=== PATIENT | female | born 1960 | race Caucasian/White ===

== ENCOUNTER 2022-02-05 14:23 | Emergency (ER) | payer SELFPAY ==
[~2022-02-05] VITALS: Ht 162.5 cm; Wt 77.0 kg
[2022-02-05] MEDS ORDERED: CYCLOBENZAPRINE 10 MG (FLEXERIL) TAB PO STA (14:37)
--- NOTE | 2022-02-05 14:37 | ED Back Pain ---
General Chief Complaint: Back Problems Stated Complaint: BACK PAIN Source of Information: Patient Exam Limitations: No Limitations History of Present Illness Date Seen by Provider: Feb 05, 2022 Time Seen by Provider: 14:25 Initial Comments 61-year-old female with past medical history of breast cancer in remission, recently diagnosed rheumatoid arthritis not on therapy yet, and hypertension coming in due to right-sided lower back pain. Started 3 days ago, constant, worse with movement, sharp, radiates down her right leg. Its better with rest. She is taken no medicines for it as of yet. Denies any bowel or bladder dysfunction that is irregular for her, no weakness, no numbness that is new, no fever, no trauma. Denies any urinary symptoms such as hematuria or dysuria. Denies ever having a kidney stone. Has never really felt pain like this before, but does have sporadic pain everywhere due to her RA Allergies and Home Medications Allergies Coded Allergies: No Known Drug Allergies (Unverified , 02/05/22) Patient Home Medication List Home Medication List Reviewed: Yes Cefdinir (Cefdinir) 300 Mg Capsule, 300 MG PO BID Prescribed by: DESHAUN HAM on 02/05/22 1509 Hydrocodone Bit/Acetaminophen (HYDROcodone/APAP 5 MG/325 MG TAB) 1 Tab Tab, 1 TAB PO Q6H Prescribed by: DESHAUN HAM on 02/05/22 1509 Review of Systems Constitutional: No fever EENTM: No blurred vision Respiratory: no symptoms reported Cardiovascular: no symptoms reported Gastrointestinal: no symptoms reported Genitourinary: no symptoms reported Musculoskeletal: back pain Skin: no symptoms reported Psychiatric/Neurological: No Symptoms Reported All Other Systems Reviewed Negative Unless Noted: Yes Past Amevjwo-Jfskxr-Tupjlm Hx Patient Social History Tobacco Use?: No Substance use?: No Alcohol Use?: No Past Medical History Surgeries: Yes (lumpectomy, gallbladder) Physical Exam Vital Signs Vital Signs - First Documented 02/05/22 14:27 Temp 36.5 Pulse 102 Resp 16 B/P (MAP) 170/115 (133) Pulse Ox 98 O2 Delivery Room Air Capillary Refill : Height, Weight, BMI Height: '" Weight: lbs. oz. kg; BMI Method: General Appearance: No Apparent Distress, WD/WN HEENT: PERRL/EOMI, Normal ENT Inspection, Pharynx Normal Neck: Full Range of Motion, Normal Inspection, Non Tender, Supple Cardiovascular: Regular Rate, Rhythm, No Edema, Normal Peripheral Pulses Respiratory: Chest Non Tender, Lungs Clear, Normal Breath Sounds, No Accessory Muscle Use, No Respiratory Distress Gastrointestinal: Normal Bowel Sounds, Non Tender, Soft; No Distended, No Guarding Back: Normal Inspection, No Vertebral Tenderness, CVA Tenderness (R), Other (N egative straight leg test) Extremity: Normal Capillary Refill, Normal Inspection, Normal Range of Motion, Non Tender, No Calf Tenderness, No Pedal Edema Neurologic/Psychiatric: Alert, No Motor/Sensory Deficits, Normal Mood/Affect, Other (Normal gait, normal distal strength and sensation) Skin: Normal Color, Warm/Dry Lymphatic: No Adenopathy Progress/Results/Core Measures Results/Orders Lab Results Laboratory Tests Test 02/05/22 14:39 Range/Units Urine Color YELLOW Urine Clarity SLIGHTLY CLOUDY Urine pH 7.0 5-9 Urine Specific [place] 1.015 L 1.016-1.022 Urine Protein NEGATIVE NEGATIVE Urine Glucose (UA) NEGATIVE NEGATIVE Urine Ketones NEGATIVE NEGATIVE Urine Nitrite POSITIVE H NEGATIVE Urine Bilirubin NEGATIVE NEGATIVE Urine Urobilinogen 0.2 < = 1.0 MG/DL Urine Leukocyte Esterase TRACE H NEGATIVE Urine RBC (Auto) NEGATIVE NEGATIVE Urine RBC 10-25 H /HPF Urine WBC 10-25 H /HPF Urine Crystals NONE /LPF Urine Bacteria LARGE H /HPF Urine Casts NONE /LPF Urine Mucus NEGATIVE /LPF Urine Culture Indicated YES My Orders Orders - DESHAUN HAM MD Ketorolac Injection (Toradol Injection) (02/05/22 14:45) Acetaminophen Tablet (Tylenol Tablet) (02/05/22 14:45) Cyclobenzaprine Tablet (Flexeril Tablet) (02/05/22 14:37) Ct Abdomen/Pelvis Wo (02/05/22 14:37) Ua Culture If Indicated (02/05/22 14:37) Urine Culture (02/05/22 14:39) Ceftriaxone 1 Gm Pre-Mix (Rocephin 1 Gm (02/05/22 15:00) Medications Given in ED Current Medications Medications Dose Ordered Sig/Kishan Route Start Time Stop Time Status Last Admin Dose Admin Acetaminophen 1,000 mg ONCE ONCE PO 02/05/22 14:45 02/05/22 14:46 DC 02/05/22 14:44 1,000 MG Ceftriaxone Sodium/Dextrose 50 ml @ 100 mls/hr ONCE ONCE IV 02/05/22 15:00 02/05/22 15:29 02/05/22 15:11 100 MLS/HR Ketorolac Tromethamine 15 mg ONCE ONCE IM 02/05/22 14:45 02/05/22 14:46 DC 02/05/22 14:45 15 MG Vital Signs/I&O 02/05/22 14:27 Temp 36.5 Pulse 102 Resp 16 B/P (MAP) 170/115 (133) Pulse Ox 98 O2 Delivery Room Air Progress Progress Note : Progress Note 61-year-old female with above history coming in due to right flank pain. ABCs were intact and vitals were stable on presentation. Physical exam with right C VA tenderness over her kidney. She is neurovascularly intact and has a normal gait with no red flags for low back pain. CT abdomen pelvis without contrast ordered without acute abnormality. Specifically she does not have any ureterolithiasis, no fracture, normal caliber aorta with no signs of aneurysm. Urinalysis concerning for infection and given the tenderness over her kidney and concern for pyelonephritis. She was given a dose of IV ceftriaxone and will be sent home with oral medications. Diagnostic Imaging Diagonstic Imaging: CT (abd/pelvis) Comments NAME: EVELIN GARCIA [facility] REC#: [id number] PT STATUS: REG ER : 1960 PHYSICIAN: DESHAUN HAM MD ADMIT DATE: 02/05/22/ER FS Draft Date of Exam:02/05/22 CT ABDOMEN/PELVIS WO PROCEDURE: CT abdomen and pelvis without contrast. TECHNIQUE: Multiple contiguous axial images were obtained through the abdomen and pelvis without the use of intravenous contrast. Auto Exposure Controls were utilized during the CT exam to meet ALARA standards for radiation dose reduction. INDICATION: Right flank pain. FINDINGS: There are no radiopaque urinary tract calculi. There is no hydroureteronephrosis. There is no perinephric or periureteric edema or stranding. The unopacified urinary bladder is unremarkable. The appendix is air-containing, nondilated, and non-thickened. No appendicitis. There is no diverticulitis. The gallbladder is surgically absent. There is no pathological distention of the bile ducts. The spleen, adrenals, and pancreas are unremarkable. The atherosclerotic aorta is nonaneurysmal. There is a mildly elevated fecal load throughout the length of the colon and mild constipation could not be excluded. There is, however, no focal impaction or bowel obstruction and no colonic wall thickening. IMPRESSION: 1. Nonfocal, unobstructed, and nonacute urinary tracts. 2. Mild constipation could not be excluded but no impaction, obstruction, or focal inflammatory process. 3. Normal appendix. Dictated on workstation # [id number] Dict: 02/05/22 1453 Trans: 02/05/22 1503 [id number] Interpreted by: ZACHARIAH EDMONDS Electronically signed by: Departure Impression Primary Impression: Pyelonephritis Disposition: HOME, SELF-CARE Condition: Stable Departure-Patient Inst. Decision time for Depature: 15:25 Referrals: SHADE CHICAS APRN (PCP) Primary Care Physician MELANIE ELIZABETH MD (Family) Primary Care Physician Patient Instructions: Kidney Infection (DC) Add. Discharge Instructions: You have a kidney infection on the right. You will be on antibiotics for the next 10 days. Take over the counter ibuprofen or naproxen for pain. If that doesn't help then you can take a hydrocodone. If things are not improving in the next week then follow up with your regular doctor. Scripts Hydrocodone Bit/Acetaminophen (HYDROcodone/APAP 5 MG/325 MG TAB) 1 Tab Tab 1 TAB PO Q6H for Pain for 3 Days, #12 TAB 0 Refills Prov: DESHAUN HAM MD 02/05/22 Cefdinir (Cefdinir) 300 Mg Capsule 300 MG PO BID for 10 Days, #20 CAP 0 Refills Prov: DESHAUN HAM MD 02/05/22 Work/School Note: Work Release Form Date Seen in the Emergency Department: Feb 05, 2022 Return to Work: Feb 07, 2022 Restrictions: No Restrictions DESHAUN HAM MD Feb 05, 2022 14:37
[2022-02-05 14:42] LABS: BILIRUBIN,URINE NEGATIVE (NEGATIVE); COLOR,URINE YELLOW; GLUCOSE, URINE (UA) NEGATIVE (NEGATIVE); KETONES,URINE NEGATIVE (NEGATIVE); LEUKOCYTE ESTERASE ,URINE TRACE (NEGATIVE); NITRITE,URINE POSITIVE (NEGATIVE); PROTEIN,URINE NEGATIVE (NEGATIVE)
[2022-02-05 14:45] LABS: CLARITY,URINE SLIGHTLY CLOUDY
[2022-02-05] MEDS ORDERED: KETOROLAC 30 MG/ML VIAL IM ONE (14:45)
[2022-02-05] MEDS ORDERED: ACETAMINOPHEN 500 MG TAB (TYLENOL) PO ONE (14:45)
[2022-02-05 14:46] LABS: BACTERIA,URINE LARGE /HPF
[2022-02-05] MEDS ORDERED: cefTRIAXone 1 GM PRE-MIX 50 ML IV ONE (15:00)
--- NOTE | 2022-02-05 15:04 | Diagnostic Imaging Report ---
PROCEDURE: CT abdomen and pelvis without contrast. TECHNIQUE: Multiple contiguous axial images were obtained through the abdomen and pelvis without the use of intravenous contrast. Auto Exposure Controls were utilized during the CT exam to meet ALARA standards for radiation dose reduction. INDICATION: Right flank pain. FINDINGS: There are no radiopaque urinary tract calculi. There is no hydroureteronephrosis. There is no perinephric or periureteric edema or stranding. The unopacified urinary bladder is unremarkable. The appendix is air-containing, nondilated, and non-thickened. No appendicitis. There is no diverticulitis. The gallbladder is surgically absent. There is no pathological distention of the bile ducts. The spleen, adrenals, and pancreas are unremarkable. The atherosclerotic aorta is nonaneurysmal. There is a mildly elevated fecal load throughout the length of the colon and mild constipation could not be excluded. There is, however, no focal impaction or bowel obstruction and no colonic wall thickening. IMPRESSION: 1. Nonfocal, unobstructed, and nonacute urinary tracts. 2. Mild constipation could not be excluded but no impaction, obstruction, or focal inflammatory process. 3. Normal appendix. Dictated by: Dictated on workstation # [id number]
[2022-02-05] MEDS ORDERED: CEFD300C3 PO (15:09)
[2022-02-05] MEDS ORDERED: ACHD5005 PO (15:09)
[2022-02-05 15:49] VITALS: BP 170/115
== END 2022-02-05 15:41 | disposition home or self-care (01) ==
LOC: ER FS 14:26
DX: N12 Tubulo-interstitial nephritis, not specified as acute or chronic (principal)
CPT/HCPCS: 74176; 81000; 87088

== ENCOUNTER 2023-05-01 10:08 | Emergency (ER) | payer OTHER ==
[~2023-05-01] VITALS: Ht 160 cm; Wt 69.0 kg
[~2023-05-01 10:08] MED LIST: ACHD5005 PO; CEFD300C3 PO
--- NOTE | 2023-05-01 10:15 | ED Neurological Problem ---
General Stated Complaint: SEIZURE History of Present Illness Date Seen by Provider: May 01, 2023 Time Seen by Provider: 10:10 Initial Comments 63-year-old female with PMH of seizure disorder but never started on any seizure medications/past history of drug use/Sjogren syndrome/HTN, was sent here from the clinic for seizure activity. Patient had a seizure today morning at 5 AM, 8 AM, 9:45 AM, and 1 in the clinic. The seizures lasted from 40 seconds to less than a minute as per her . Patient states that she does get an aura right before the seizure comes and she feels like the environment around her is disappearing right before she has a seizure. The last seizure patient had at home, she fell and hit her head lightly on the edge of the dresser, because her daughter was not able to help her down fast enough, as reported by her daughter. Patient has been traveling [place] the country in the past few days and has not had much sleep since Sunday as per her , and she has not been drinking as much water as she normally does. Patient's prior seizures were in June 2022 in February 2023. Denies recent fever or illness, diarrhea, chest pain, pa lpitations, traumas or injuries. Patient did not have anything to eat or drink today. Allergies and Home Medications Allergies Coded Allergies: No Known Drug Allergies (Unverified , 02/05/22) Patient Home Medication List Home Medication List Reviewed: Yes Cefdinir (Cefdinir) 300 Mg Capsule, 300 MG PO BID Prescribed by: DESHAUN HAM on 02/05/22 1509 Hydrocodone Bit/Acetaminophen (HYDROcodone/APAP 5 MG/325 MG TAB) 1 Tab Tab, 1 TAB PO Q6H Prescribed by: DESHAUN HAM on 02/05/22 1509 Levetiracetam (Keppra) 500 Mg Tablet, 500 MG PO BID Prescribed by: SHANTANU ABDUL MD on 05/01/23 1120 Review of Systems Review of Systems Constitutional: no symptoms reported Eyes: No Symptoms Reported Ears, Nose, Mouth, Throat: no symptoms reported Respiratory: no symptoms reported Cardiovascular: no symptoms reported Gastrointestinal: no symptoms reported Genitourinary: no symptoms reported Musculoskeletal: no symptoms reported Skin: no symptoms reported Psychiatric/Neurological: See HPI, Tonic Clonic Seizures Endocrine: No Symptoms Reported Hematologic/Lymphatic: No Symptoms Reported Past Ftmesso-Vvvfiy-Nqotkd Hx Immunizations Up To Date First/Initial COVID19 Vaccinat: Not currently vaccinated Past Medical History Surgery/Hospitalization HX: RA; Hx Breast Cancer; Cholecysectomy; right lumpectomy Surgeries: Yes (lumpectomy, gallbladder) Physical Exam Vital Signs Vital Signs - First Documented 05/01/23 10:08 Temp 37.0 Pulse 89 Resp 16 B/P (MAP) 162/94 (116) O2 Delivery Room Air Capillary Refill : Height, Weight, BMI Height: '" Weight: lbs. oz. kg; 29.00 BMI Method: General Appearance: WD/WN, no apparent distress HEENT: PERRL/EOMI, normal ENT inspection, other (Contusion to left temporal area, nontender) Neck: non-tender, full range of motion, supple, normal inspection Respiratory: chest non-tender, lungs clear, normal breath sounds Cardiovascular: regular rate, rhythm Gastrointestinal: normal bowel sounds, non tender, soft Back: normal inspection, no vertebral tenderness Extremities: normal range of motion, non-tender, normal inspection Neurologic/Psychiatric: data designer II-XII nml as tested, no motor/sensory deficits, alert, normal mood/affect, oriented x 3 Crainal Nerves: normal hearing, normal speech, PERRL Coordination/Gait: normal finger to nose, normal gait Motor/Sensory: no motor deficit, no sensory deficit Skin: normal color Lymphatic: no adenopathy Focused Exam Lactate Level 05/01/23 10:30: Lactic Acid Level 4.14*H Lactic Acid Level Laboratory Tests Test 05/01/23 10:30 Lactic Acid Level 4.14 MMOL/L (0.50-2.00) *H Progress/Results/Core Measures Results/Orders Lab Results Laboratory Tests Test 05/01/23 10:25 05/01/23 10:30 05/01/23 10:39 05/01/23 11:55 Range/Units White Blood Count 5.3 4.3-11.0 10^3/uL Red Blood Count 5.00 3.80-5.11 10^6/uL Hemoglobin 14.5 11.5-16.0 g/dL Hematocrit 45 35-52 % Mean Corpuscular Volume 91 80-99 fL Mean Corpuscular Hemoglobin 29 25-34 pg Mean Corpuscular Hemoglobin Concent 32 32-36 g/dL Red Cell Distribution Width 13.5 10.0-14.5 % Platelet Count 324 130-400 10^3/uL Mean Platelet Volume 9.1 9.0-12.2 fL Immature Granulocyte % (Auto) 1 % Neutrophils (%) (Auto) 79 H 42-75 % Lymphocytes (%) (Auto) 16 12-44 % Monocytes (%) (Auto) 3 0-12 % Eosinophils (%) (Auto) 0 0-10 % Basophils (%) (Auto) 1 0-10 % Neutrophils # (Auto) 4.2 1.8-7.8 10^3/uL Lymphocytes # (Auto) 0.8 L 1.0-4.0 10^3/uL Monocytes # (Auto) 0.2 0.0-1.0 10^3/uL Eosinophils # (Auto) 0.0 0.0-0.3 10^3/uL Basophils # (Auto) 0.1 0.0-0.1 10^3/uL Immature Granulocyte # (Auto) 0.0 0.0-0.1 10^3/uL Sodium Level 141 135-145 MMOL/L Potassium Level 3.8 3.6-5.0 MMOL/L Chloride Level 103 98-107 MMOL/L Carbon Dioxide Level 22 21-32 MMOL/L Anion Gap 16 H 5-14 MMOL/L Blood Urea Nitrogen 17 7-18 MG/DL Creatinine 0.76 0.60-1.30 MG/DL Estimat Glomerular Filtration Rate 89 BUN/Creatinine Ratio 22 Glucose Level 107 H 70-105 MG/DL Calcium Level 9.3 8.5-10.1 MG/DL Corrected Calcium 8.9 8.5-10.1 MG/DL Magnesium Level 2.2 1.6-2.4 MG/DL Total Bilirubin 0.3 0.1-1.0 MG/DL Aspartate Amino Transf (AST/SGOT) 16 5-34 U/L Alanine Aminotransferase (ALT/SGPT) 10 0-55 U/L Alkaline Phosphatase 107 40-136 U/L Total Protein 8.9 H 6.4-8.2 GM/DL Albumin 4.5 3.2-4.5 GM/DL Lactic Acid Level 4.14 *H 0.50-2.00 MMOL/L Glucometer 104 70-110 MG/DL Urine Color YELLOW Urine Clarity CLEAR Urine pH 7.0 5-9 Urine Specific [place] 1.020 1.016-1.022 Urine Protein NEGATIVE NEGATIVE Urine Glucose (UA) NEGATIVE NEGATIVE Urine Ketones NEGATIVE NEGATIVE Urine Nitrite NEGATIVE NEGATIVE Urine Bilirubin NEGATIVE NEGATIVE Urine Urobilinogen 0.2 < = 1.0 MG/DL Urine Leukocyte Esterase 1+ H NEGATIVE Urine RBC (Auto) NEGATIVE NEGATIVE Urine RBC NONE /HPF Urine WBC 5-10 H /HPF Urine Squamous Epithelial Cells 5-10 /HPF Urine Crystals NONE /LPF Urine Bacteria FEW H /HPF Urine Casts NONE /LPF Urine Mucus SMALL H /LPF Urine Culture Indicated YES Urine Opiates Screen POSITIVE H NEGATIVE Urine Oxycodone Screen NEGATIVE NEGATIVE Urine Methadone Screen NEGATIVE NEGATIVE Urine Propoxyphene Screen NEGATIVE NEGATIVE Urine Barbiturates Screen POSITIVE H NEGATIVE Ur Tricyclic Antidepressants Screen NEGATIVE NEGATIVE Urine Phencyclidine Screen NEGATIVE NEGATIVE Urine Amphetamines Screen NEGATIVE NEGATIVE Urine Methamphetamines Screen NEGATIVE NEGATIVE Urine Benzodiazepines Screen POSITIVE H NEGATIVE Urine Cocaine Screen NEGATIVE NEGATIVE Urine Cannabinoids Screen NEGATIVE NEGATIVE My Orders Orders - SHANTANU ABDUL MD Cbc With Automated Diff (05/01/23 10:15) Comprehensive Metabolic Panel (05/01/23 10:15) Drug Screen Stat (Urine) (05/01/23 10:15) Lactic Acid Analyzer (05/01/23 10:15) Magnesium (05/01/23 10:15) Ua Culture If Indicated (05/01/23 10:15) Levetiracetam 1000 Mg/Ns 100ml (Keppra I (05/01/23 10:37) Levetiracetam Injection (Levetiracetam I (05/01/23 10:37) Ed Iv/Invasive Line Start (05/01/23 10:39) Ns Iv 1000 Ml (Ns Iv 1000 Ml) (05/01/23 10:45) Urine Culture (05/01/23 11:55) Vital Signs/I&O 05/01/23 10:08 Temp 37.0 Pulse 89 Resp 16 B/P (MAP) 162/94 (116) O2 Delivery Room Air Progress Progress Note : Progress Note 1. SEIZURE: - labs unreamarkable, lactic acid elevated at 4.14 , but likely due to combination of post-seizure and dehydration. - Keppra 1500mg iv loading dose given in ER - NS IVF bolus STAT - Keppra prescription of 500mg bid given for 14 days, until she follows up with PCP or Neurology - Advised pt to follow up with PCP and also make neurology appointment. PCP was trying to get a neurology appointment today right before she had a seizure in their office. - Advised not to take any old medications, or medications that are not prescribed by PCP. -Advised adequate sleep and nutrition - Pt's thinks she is taking drugs or medications she should not be, and thinks she may be taking old medications secretly. ALl the drufs that are positive on her UDS, her states she should not be taking. -The patient was seen in the ED, and treated appropriately to presentation at a specific point in time. Patient is informed that there is a possibility that disease and illness can evolve and change in acuity rapidly or slowly after patient is discharged from the ER. Precautionary advice given to the patient for immediate return to ER if symptoms worsen or do not resolve, and to seek [facility] care sooner rather than later. Pt also advised on the importance of PCP follow up and compliance with management and follow up plan with PCP and/or specialist, as this is part of the management plan. Pt verbally expressed understanding. 2. UTI: - UA: Positive for leukocyte esterase, WBC, bacteria - UDS: Positive for barbiturates, benzodiazepines, and opiates -Nitrofurantoin 100 mg twice daily for 7 days -Adequate hydration advised Departure Impression Primary Impression: Generalized convulsive seizure Additional Impression: Acute cystitis without hematuria Disposition: 01 HOME, SELF-CARE Condition: Improved Departure-Patient Inst. Referrals: JAYLEEN THOMAS APRN (PCP) Primary Care Physician [facility] (Family) Primary Care Physician Patient Instructions: Urinary Tract Infection, Adult (DC), Seizures, Adult ED, Acute Cystitis (DC), Time to stop driving? Add. Discharge Instructions: - Keppra prescription of 500mg bid given for 14 days. - Advised pt to follow up with PCP and also make neurology appointment. PCP was trying to get a neurology appointment today right before she had a seizure in their office. - Advised not to take any old medications, or medications that are not prescribed by PCP. -Advised adequate sleep and nutrition -Advised not to drive until cleared by neurologist -Nitrofurantoin 100 mg twice daily for 7 days -Adequate hydration advised Scripts Nitrofurantoin Macrocrystal (Nitrofurantoin) 100 Mg Capsule 100 MG PO BID for 7 Days, #14 CAP Prov: SHANTANU ABDUL MD 05/01/23 Levetiracetam (Keppra) 500 Mg Tablet 500 MG PO BID for 14 Days, #28 TAB Prov: SHANTANU ABDUL MD 05/01/23 SHANTANU ABDUL MD May 01, 2023 10:15
[2023-05-01 10:35] LABS: BASOPHILS # (AUTO) 0.1 10^3/uL (0.0-0.1); BASOPHILS % (AUTO) 1 % (0-10); EOSINOPHILS % (AUTO) 0 % (0-10); HEMATOCRIT 45 % (35-52); HEMOGLOBIN 14.5 g/dL (11.5-16.0); LYMPHOCYTES # (AUTO) 0.8 10^3/uL (1.0-4.0); LYMPHOCYTES % (AUTO) 16 % (12-44); MEAN CORPUSCULAR HEMOGLOBIN 29 pg (25-34); MEAN CORPUSCULAR HGB CONC 32 g/dL (32-36); MEAN CORPUSCULAR VOLUME 91 fL (80-99); MEAN PLATELET VOLUME 9.1 fL (9.0-12.2); MONOCYTES # (AUTO) 0.2 10^3/uL (0.0-1.0); MONOCYTES % (AUTO) 3 % (0-12); NEUTROPHILS # (AUTO) 4.2 10^3/uL (1.8-7.8); NEUTROPHILS % (AUTO) 79 % (42-75); PLATELET COUNT 324 10^3/uL (130-400); WHITE BLOOD COUNT 5.3 10^3/uL (4.3-11.0)
[2023-05-01] MEDS ORDERED: levETIRAcetam 1000 mg/NS 100ml 100 ML IV STA (10:37)
[2023-05-01] MEDS ORDERED: LevETIRAcetam INJECTION 500 MG in NS (IVPB) 100 ML 100 ML IV STA (10:37)
[2023-05-01] MEDS ORDERED: NS IV 1000 ML 1,000 ML IV SCH (10:45)
[2023-05-01 10:54] LABS: ALBUMIN 4.5 GM/DL (3.2-4.5); BILIRUBIN,TOTAL 0.3 MG/DL (0.1-1.0); CALCIUM 9.3 MG/DL (8.5-10.1); CREATININE SERUM 0.76 MG/DL (0.60-1.30); MAGNESIUM 2.2 MG/DL (1.6-2.4); POTASSIUM 3.8 MMOL/L (3.6-5.0); TOTAL PROTEIN 8.9 GM/DL (6.4-8.2)
[2023-05-01] MEDS ORDERED: LEVE500T99 PO (11:20)
[2023-05-01 12:02] LABS: BILIRUBIN,URINE NEGATIVE (NEGATIVE); CLARITY,URINE CLEAR; COLOR,URINE YELLOW; GLUCOSE, URINE (UA) NEGATIVE (NEGATIVE); KETONES,URINE NEGATIVE (NEGATIVE); LEUKOCYTE ESTERASE ,URINE 1+ (NEGATIVE); NITRITE,URINE NEGATIVE (NEGATIVE); PROTEIN,URINE NEGATIVE (NEGATIVE)
[2023-05-01 12:09] LABS: BACTERIA,URINE FEW /HPF
[2023-05-01 12:17] LABS: AMPHETAMINE SCREEN, URINE NEGATIVE (NEGATIVE); BARBITURATE SCREEN URINE POSITIVE (NEGATIVE); CANNABINOID SCREEN, URINE NEGATIVE (NEGATIVE); COCAINE SCREEN URINE NEGATIVE (NEGATIVE); METHADONE STAT NEGATIVE (NEGATIVE); OPIATE SCREEN URINE POSITIVE (NEGATIVE); OXYCODONE STAT NEGATIVE (NEGATIVE); PROPOXYPHENE STAT NEGATIVE (NEGATIVE); TRICYCLIC ANTIDEPRESSANTS SCRE NEGATIVE (NEGATIVE)
[2023-05-01] MEDS ORDERED: NITR100C PO (12:53)
[2023-05-01 12:57] VITALS: BP 164/98
== END 2023-05-01 12:57 | disposition home or self-care (01) ==
LOC: EDUNIT# 10:08 → ER FS 10:09
DX: S00.03XA Contusion of scalp, initial encounter (principal); R56.9 Unspecified convulsions; N30.00 Acute cystitis without hematuria; Z28.310 Unvaccinated for COVID-19; X58.XXXA Exposure to other specified factors, initial encounter
CPT/HCPCS: 36415; 80053; 80306; 81000; 82947; 83605; 83735; 85025; 87088

== ENCOUNTER 2023-05-31 12:38 | Emergency (ER) | payer OTHER ==
[~2023-05-31] VITALS: Ht 167 cm; Wt 75.0 kg
[~2023-05-31 12:38] MED LIST changes: +LEVE500T99 PO; +NITR100C PO
--- NOTE | 2023-05-31 12:47 | ED EENT ---
History of Present Illness General Chief Complaint: Dental Problems/Pain Stated Complaint: DENTAL BLEEDING History of Present Illness Date Seen by Provider: May 31, 2023 Time Seen by Provider: 12:47 Initial Comments 63-year-old female is here with complaints of having 2 of her right sided lower teeth removed today morning at 7 AM at the dentist office, and she started having profuse bleeding about an hour ago. Patient went to sleep after she came back from the dentist office and when she woke up she started bleeding and swallowing the blood. In the ER patient has moderate amounts of bleeding. Denies dizziness, lightheadedness, nausea and vomiting. Allergies and Home Medications Allergies Coded Allergies: No Known Drug Allergies (Unverified , 02/05/22) Patient Home Medication List Home Medication List Reviewed: Yes Cefdinir (Cefdinir) 300 Mg Capsule, 300 MG PO BID Prescribed by: DESHAUN HAM on 02/05/22 1509 Hydrocodone Bit/Acetaminophen (HYDROcodone/APAP 5 MG/325 MG TAB) 1 Tab Tab, 1 TAB PO Q6H Prescribed by: DESHAUN HAM on 02/05/22 1509 Levetiracetam (Keppra) 500 Mg Tablet, 500 MG PO BID Prescribed by: SHANTANU ABDUL MD on 05/01/23 1120 Nitrofurantoin Macrocrystal (Nitrofurantoin) 100 Mg Capsule, 100 MG PO BID Prescribed by: SHANTANU ABDUL MD on 05/01/23 1253 Review of Systems Review of Systems Constitutional: no symptoms reported Mouth: see HPI, clots Past Dmrvsrn-Onhegr-Kpgrtd Hx Immunizations Up To Date First/Initial COVID19 Vaccinat: Not currently vaccinated Past Medical History Surgery/Hospitalization HX: RA; Hx Breast Cancer; Cholecysectomy; right lumpectomy Surgeries: Yes (lumpectomy, gallbladder) Physical Exam Vital Signs Vital Signs - First Documented 05/31/23 12:48 Temp 35.9 Pulse 88 Resp 20 B/P (MAP) 165/95 (118) Pulse Ox 93 O2 Delivery Room Air Height, Weight, BMI Height: '" Weight: lbs. oz. kg; 26.00 BMI Method: General Appearance: WD/WN, mild distress Nose: normal inspection Mouth/Throat: other (Right side lower 2 molar teeth are pulled and tooth sockets show moderate amounts of bleeding.) Neck: full range of motion Cardiovascular: regular rate, rhythm Respiratory: lungs clear Neurologic/Psychiatric: alert, oriented x 3 Skin: normal color Progress/Results/Core Measures Results/Orders Lab Results Laboratory Tests Test 05/31/23 12:55 Range/Units My Orders Orders - SHANTANU ABDUL MD Cbc And Automated Diff (05/31/23 13:02) Vital Signs/I&O 05/31/23 12:48 Temp 35.9 Pulse 88 Resp 20 B/P (MAP) 165/95 (118) Pulse Ox 93 O2 Delivery Room Air Progress Progress Note : Progress Note 1. BLEEDING S/P DENTAL EXTRACTION: LEFT AMA - CBC:Hb stable at 13. - Pressure applied with guaze. Instructed pt not to talk for 20 minutes, but pt keeps talking. - Gauze soaked with lido and epi for pressure was offered but pt refused it. Pt called dentist office and wants to leave AMA. Risks and benefits explained to pt but she wants to go home because the dentist told her to keep applying pressure. Bleeding did not stop when pt left AMA.Her also persuaded her to stay but pt wants to go home. SHe has signed the AMA for. Departure Impression Primary Impression: Surgical wound hemorrhage after dental procedure Additional Impression: Left against medical advice Disposition: 07 AGAINST MEDICAL ADVICE Condition: Against Medical Advice Departure-Patient Inst. Referrals: JAYLEEN THOMAS APRN (PCP) Primary Care Physician [facility]/ (Family) Primary Care Physician SHANTANU ABDUL MD May 31, 2023 12:47
[2023-05-31 12:48] VITALS: BP 165/95
[2023-05-31 13:15] LABS: BASOPHILS # (AUTO) 0.1 10^3/uL (0.0-0.1); BASOPHILS % (AUTO) 1 % (0-10); EOSINOPHILS # (AUTO) 0.1 10^3/uL (0.0-0.3); EOSINOPHILS % (AUTO) 1 % (0-10); HEMATOCRIT 39 % (35-52); LYMPHOCYTES # (AUTO) 1.7 10^3/uL (1.0-4.0); LYMPHOCYTES % (AUTO) 22 % (12-44); MEAN CORPUSCULAR HEMOGLOBIN 29 pg (25-34); MEAN CORPUSCULAR HGB CONC 33 g/dL (32-36); MEAN CORPUSCULAR VOLUME 89 fL (80-99); MEAN PLATELET VOLUME 9.1 fL (9.0-12.2); MONOCYTES # (AUTO) 0.3 10^3/uL (0.0-1.0); MONOCYTES % (AUTO) 3 % (0-12); NEUTROPHILS # (AUTO) 5.4 10^3/uL (1.8-7.8); NEUTROPHILS % (AUTO) 73 % (42-75); PLATELET COUNT 266 10^3/uL (130-400); WHITE BLOOD COUNT 7.5 10^3/uL (4.3-11.0)
== END 2023-05-31 13:17 | disposition left against medical advice (07) ==
LOC: EDUNIT# 12:38 → ER FS 12:39
DX: K91.840 Postprocedural hemorrhage of a digestive system organ or structure following a digestive system procedure (principal); Z28.310 Unvaccinated for COVID-19
CPT/HCPCS: 36415; 85025